=== PATIENT | female | born 1970 | race American Indian/Alaskan Native ===

== ENCOUNTER 2017-08-20 18:53 | Emergency (ER) | payer OTHER ==
[2017-08-20] MEDS ORDERED: TYLENOL PO ONE (21:46)
[2017-08-20] MEDS ORDERED: TYLENOL ONE (21:48)
--- NOTE | 2017-08-20 22:48 | XRay Report ---
FINAL REPORT PROCEDURE: XR CHEST ROUTINE 2V TECHNIQUE: PA and lateral chest radiographs were obtained. CPT 07737 HISTORY: cough COMPARISON: No prior studies are available for comparison. FINDINGS: Heart: Normal. Mediastinum/Vessels: Normal. Lungs/Pleural space: Normal. Bony thorax: There has been previous anterior fusion of the lower cervical vertebral segments. Hardware is identified in this region. The osseous structures are otherwise normal for age.. Other: IMPRESSION: There is no evidence of an acute cardiopulmonary process..
--- NOTE | 2017-08-20 23:26 | Emergency Department Report ---
- General Chief Complaint: Upper Respiratory Infection Stated Complaint: COLD SX Time Seen by Provider: 08/20/17 23:12 Source: patient Mode of arrival: Ambulatory Limitations: No Limitations - History of Present Illness Initial Comments: 47-year-old female past medical history none presents with complaint of one day of body aches chills runny nose earache cough or sore throat. Patient denies chest pain palpitations nausea or vomiting. Patient is a nurse and works on medical unit. Patient is awake alert and oriented 3 fully lucid speaking in full sentences no audible wheezing or stridor on clinical exam. States she has been around multiple patients with respiratory infections within the last week. States that symptoms have been ongoing for 1-2 days. Patient states she received flu vaccination earlier this season. Denies dysuria hematuria or increased urinary frequency abdominal pain or flank pain. MD Complaint: cough, sore throat, rhinorrhea, nasal congestion, sinus pain Onset/Timin -: days(s) Context: sick contacts Associated Symptoms: fever, rhinorrhea, nasal congestion, sore throat, cough - Related Data Previous Rx's Medication Instructions Recorded Last Taken Type Amoxicillin/K Clav Tab [Augmentin 1 tab PO Q12HR #20 tab 08/21/17 Unknown Rx 875 mg] Benzonatate [Tessalon Perles] 100 mg PO Q8HR PRN #30 capsule 08/21/17 Unknown Rx Ibuprofen [Motrin] 800 mg PO Q8HR PRN #30 tablet 08/21/17 Unknown Rx Phenylephrine/Dm/Acetaminop/GG 10 ml PO Q4H PRN #1 liquid 08/21/17 Unknown Rx [Mucinex Fyjg-Sfi-Zwdomnwgqp Lq] Allergies Allergy/AdvReac Type Severity Reaction Status Date / Time latex Allergy Hives Verified 08/20/17 21:44 ED Review of Systems ROS: Stated complaint: COLD SX Other details as noted in HPI Constitutional: malaise. denies: chills, fever Eyes: denies: eye pain, eye discharge, vision change ENT: throat pain, congestion. denies: ear pain Respiratory: cough. denies: shortness of breath, wheezing Cardiovascular: denies: chest pain, palpitations Endocrine: no symptoms reported Gastrointestinal: denies: abdominal pain, nausea, diarrhea Genitourinary: denies: urgency, dysuria, discharge Musculoskeletal: denies: back pain, joint swelling, arthralgia Skin: denies: rash, lesions Neurological: denies: headache, weakness, paresthesias Psychiatric: denies: anxiety, depression Hematological/Lymphatic: denies: easy bleeding, easy bruising ED Past Medical Hx - Past Medical History Previous Medical History?: No - Surgical History Past Surgical History?: No - Social History Smoking Status: Never Smoker Substance Use Type: None - Medications Home Medications: Home Medications Medication Instructions Recorded Confirmed Last Taken Type Amoxicillin/K Clav Tab [Augmentin 1 tab PO Q12HR #20 tab 08/21/17 Unknown Rx 875 mg] Benzonatate [Tessalon Perles] 100 mg PO Q8HR PRN #30 capsule 08/21/17 Unknown Rx Ibuprofen [Motrin] 800 mg PO Q8HR PRN #30 tablet 08/21/17 Unknown Rx Phenylephrine/Dm/Acetaminop/GG 10 ml PO Q4H PRN #1 liquid 08/21/17 Unknown Rx [Mucinex Dkja-Mhq-Slxqbopuem Lq] ED Physical Exam - General Limitations: No Limitations General appearance: alert, in no apparent distress - Head Head exam: Present: atraumatic, normocephalic - Eye Eye exam: Present: normal appearance, PERRL, EOMI - ENT ENT exam: Present: normal orophraynx (no tonsillar erythema no exudates no [employer] uvula midline), mucous membranes moist, TM's normal bilaterally - Neck Neck exam: Present: normal inspection - Respiratory Respiratory exam: Present: normal lung sounds bilaterally (lungs clear to auscultation bilaterally). Absent: respiratory distress - Cardiovascular Cardiovascular Exam: Present: regular rate, normal rhythm. Absent: systolic murmur, diastolic murmur, rubs, gallop - GI/Abdominal GI/Abdominal exam: Present: soft, normal bowel sounds - Extremities Exam Extremities exam: Present: normal inspection - Back Exam Back exam: Present: normal inspection - Neurological Exam Neurological exam: Present: alert, oriented X3 - Psychiatric Psychiatric exam: Present: normal affect, normal mood - Skin Skin exam: Present: warm, dry, intact, normal color. Absent: rash ED Course Vital Signs 08/20/17 08/21/17 21:38 00:01 Temperature 98.1 F Pulse Rate 93 H 80 Respiratory 18 18 Rate Blood Pressure 130/80 Blood Pressure 105/68 [Right] O2 Sat by Pulse 100 100 Oximetry ED Medical Decision Making - Medical Decision Making A/P: Acute sinusitis, URI 1-patient does have sinus congestion with some sinus tenderness will empirically treat with Augmentin 2-symptomatic treatment for cold symptoms 3-follow-up with primary care doctor 4- chest x-ray unremarkable, flu and strep swabs negative Critical care attestation.: If time is entered above; I have spent that time in minutes in the direct care of this critically ill patient, excluding procedure time. ED Disposition Clinical Impression: Sinusitis Qualifiers: Sinusitis location: frontal Chronicity: acute Recurrence: non-recurrent Qualified Code(s): J01.10 - Acute frontal sinusitis, unspecified Disposition: TO HOME OR SELFCARE Is pt being admited?: No Does the pt Need Aspirin: No Condition: Stable Instructions: Sinusitis (ED), Upper Respiratory Infection (ED) Prescriptions: Amoxicillin/K Clav Tab [Augmentin 875 mg] 1 tab PO Q12HR #20 tab Benzonatate [Tessalon Perles] 100 mg PO Q8HR PRN #30 capsule PRN Reason: Cough Ibuprofen [Motrin] 800 mg PO Q8HR PRN #30 tablet PRN Reason: Pain Phenylephrine/Dm/Acetaminop/GG [Mucinex Jgqf-Nms-Yrdxughkxe Lq] 10 ml PO Q4H PRN #1 liquid PRN Reason: Cough Referrals: ANNA PALM MD [Primary Care Provider] - 3-5 Days Forms: Work/School Release Form(ED) Time of Disposition: 00:27
[2017-08-21 00:02] VITALS: BP 105/68
== END 2017-08-21 00:33 | disposition home or self-care (01) ==
LOC: ED 18:53
DX: J01.10 Acute frontal sinusitis, unspecified (principal)
CPT/HCPCS: 71046; 87116; 87400; 87430